=== PATIENT | male | born 1950 | race Caucasian/White ===

== ENCOUNTER → 2017-06-26 | Outpatient (CLI) | payer MEDICARE, OTHER ==
[~2017-06-26] MED LIST: ASPIRIN 81MG TA81 MG PO; BACTRIM DS 8001 TA1 PO; BISOPROLOL 5MG T5 MG PO; CEFTRIAXONE 1 GM1 GM IV; CENTRUM SILVER1 EACH PO; CLOPIDOGREL75 MG PO; LEVAQUIN500 MG PO; LIPITOR40 MG PO; NORCO 325 MG-51 TAB PO; PANTOPRAZOLE SO40 MG PO; PROAIR HFA0.09 MG/AC IH; SYMBICORT1 AE1 IH; TUDORZA PR400 MCG/Ac IH; [UNRECOGNIZED DRUG - OTHER] IV
--- NOTE | 2017-06-26 15:07 | RADIOLOGY REPORT PS360 ---
US AORTA (RETROPERITONEAL) HISTORY: Follow-up abdominal aortic aneurysm AAA ORDERING PHYSICIAN: Jono Castro MD PATIENT AGE: 67 years COMPARISON: 11/30/2015 FINDINGS: There is mild fusiform dilatation of the mid abdominal aorta measuring up to 2.8 cm in maximum AP dimension. Mild atheromatous plaque noted. The common iliacs are unremarkable. IMPRESSION: No change mild fusiform dilatation of the infrarenal abdominal aorta at 2.8 cm in AP dimension
== END ==
LOC: RAD 08:00
DX: I71.4 Abdominal aortic aneurysm, without rupture (principal); I25.10 Atherosclerotic heart disease of native coronary artery without angina pectoris; R06.00 Dyspnea, unspecified; I10 Essential (primary) hypertension; E78.5 Hyperlipidemia, unspecified; I73.9 Peripheral vascular disease, unspecified; Z95.5 Presence of coronary angioplasty implant and graft; Z72.0 Tobacco use